=== PATIENT | male | born 1950 | race Caucasian/White ===

== ENCOUNTER → 2019-05-21 | Outpatient (REF) | payer MEDICARE ==
[2019-05-22 15:13] LABS: PERCENT SATURATION 23.8 % (19.7-50.0)
== END ==
LOC: M LAB REF 13:18
PROVIDERS: ATTEND Internal Medicine Nephrology
DX: D50.9 Iron deficiency anemia, unspecified (principal)

== ENCOUNTER → 2019-07-01 | Outpatient (CLI) | payer MEDICARE ==
--- NOTE | 2019-07-01 17:01 | REP ---
Renal vascular ultrasound: Right Kidney: Extraparenchymal renal artery. Peak renal artery flow velocity the -- cm/ sec Peak aortic velocity: -- cm/sec Renal/aortic ratio:-- Intraparenchymal renal arteries. Resistive index: upper pole 0.83 mid pole 0.73 lower pole 0.74 Acceleration time: upper pole 0.030 mid pole 0.033 lower pole 0.045 Left kidney: Extraparenchymal renal artery: Peak renal artery flow velocity: -- cm/sec. Peak aortic velocity: -- cm/sec Renal/aortic ratio: -- Intraparenchymal renal arteries: Resistive index: Upper pole 0.83 mid pole 0.73 lower pole 0.74 Acceleration time: Upper pole 0.042 mid pole 0.039 lower pole 0.036 Impression: The extraparenchymal renal arteries and abdominal aorta are obscured by bowel gas and cannot be evaluated at this time. The intraparenchymal renal arteries demonstrate mildly elevated resistive indices. This is nonspecific but can be seen and chronic renal disease. Bilateral renal ultrasound: The kidneys are normal size. The right kidney measures 12.5 x 5.1 x 6.1 cm. Left kidney measures 11.5 x 5.4 x 5.7 cm. Renal cortical echogenicity is upper normal bilaterally. There is no hydronephrosis on the right on the left. There are no solid or cystic renal masses. No renal calculi are identified. Impression: Essentially negative renal ultrasound. Electronically Signed by Alvin Ruiz MD 07/01/2019 08:54 A
--- NOTE | 2019-07-02 06:42 | REP ---
RENAL NUCLEAR SCAN WITH FLOW AND FUNCTION: Following the intravenous administration of 8.8 millicuries technetium 99m MAG 3, immediate flow images are obtained in the posterior projections showing symmetrical perfusion. Delayed renal function images are performed every minute for a period of 30 minutes. There is symmetrical cortical uptake with no parenchymal defect identified. There is symmetrical excretion of radiotracer without evidence of significant hydronephrosis bilaterally. Cortical washout is noted. Split function is 50% bilaterally. [id number] is normal bilaterally at 2 minutes. T-1/2 on the left is 17.4 minutes and on the right 15.5 minutes, slightly elevated bilaterally. Renal function curves are symmetrical with slightly shallow downward slope. There is minimal postvoid residual in the urinary bladder after voiding. IMPRESSION: Slightly compromised renal function bilaterally. No urinary tract obstruction. Electronically Signed by Alvin Campuzano MD 07/02/2019 11:51 P
== END ==
LOC: M RAD 06:43
PROVIDERS: ATTEND Internal Medicine Nephrology
DX: N18.3 Chronic kidney disease, stage 3 (moderate) (principal); I70.1 Atherosclerosis of renal artery; I15.0 Renovascular hypertension
CPT/HCPCS: 76775; 78707; 93975; A9562

== ENCOUNTER → 2021-07-07 | Outpatient (REF) | payer MEDICARE ==
[2021-07-07 18:27] LABS: PERCENT SATURATION 29.8 % (19.7-50.0)
== END ==
LOC: M LAB REF 17:24
PROVIDERS: ATTEND Internal Medicine Nephrology
DX: D50.9 Iron deficiency anemia, unspecified (principal)

== ENCOUNTER → 2021-08-24 | Outpatient (CLI) | payer MEDICARE ==
--- NOTE | 2021-08-24 16:05 | REP ---
INDICATION: PULMONARY FIBROSIS COMPARISON: None TECHNIQUE: Axial noncontrast images from the thoracic inlet to the upper abdomen with coronal and sagittal reformations. This CT examination was performed using the following dose reduction techniques: Automated exposure control, adjustment of mA and/or kv according to the patient's size, and use of iterative reconstruction technique. FINDINGS: Lung breaux demonstrate chronic age-related interstitial changes and moderate subpleural fibrosis along with emphysematous disease and bronchiectasis. No acute consolidation. No obvious nodule or mass lesion. No effusion. No pneumothorax. Tracheobronchial tree is patent. Mildly prominent mediastinal and hilar lymph nodes measure up to approximately 18 mm in the pretracheal space and aortopulmonary window. Atherosclerotic changes to the thoracic aorta and coronary arteries noted without aortic aneurysm. No cardiomegaly or pericardial effusion. Musculoskeletal structures demonstrate age-related changes without acute osseous abnormality. IMPRESSION: Mild to early moderate interstitial changes, subpleural fibrosis, and emphysematous disease. No acute mediastinal or pleuroparenchymal process appreciated. <Electronically signed by Angel Colon > 08/24/21 9100
== END ==
LOC: M RAD 13:52
PROVIDERS: ATTEND Internal Medicine Nephrology
DX: J84.10 Pulmonary fibrosis, unspecified (principal); N18.32 Chronic kidney disease, stage 3b